=== PATIENT | male | born 1980 ===

== ENCOUNTER 2016-08-25 05:35 | Observation (INO) ==
[2016-08-25] MEDS ORDERED: fentaNYL 100 MCG/2 ML VIAL IV ONE (07:43)
[2016-08-25] MEDS ORDERED: DIAZEPAM 5 MG TABLET PO ONE (07:43)
[2016-08-25] MEDS ORDERED: MIDAZOLAM 2 MG/2 ML VIAL IV ONE (07:43)
[2016-08-25] MEDS ORDERED: SODIUM CHLORIDE 0.45% 1,000 ML IV SCH (08:00)
[2016-08-25 08:31] LABS: Basophils % 0.5 % (0.0-0.8); Eosinophils # 0.4 10*3/uL (0.0-0.87); Eosinophils % 4.7 % (0.00-10.9); Hematocrit 38.5 VOL% (42.0-52.0); Hemoglobin 12.3 GM/DL (14.0-18.0); Immature Granulocytes % 0.3 %; Immature Granulocytes Absolute 0.02 #; Lymphocytes # 2.1 10*3/uL (1.4-4.0); Lymphocytes % 28.5 % (21.2-54.2); Mean Corpuscular HGB Conc 31.9 GM/DL (32-36); Mean Corpuscular Hemoglobin 30 PG (27-34); Mean Corpuscular Volume 95.1 FL (87-102); Mean Platelet Volume 9.3 FL (9.6-12.0); Monocytes # 0.7 10*3/uL (0.11-0.8); Monocytes % 9.6 % (1.7-12.7); Neutrophils # 4.2 10*3/uL (1.4-7.4); Neutrophils % 56.4 % (38.7-73.9); Platelet Count 173 T/CUMM (130-400); Red Blood Count 4.05 MC/CUMM (3.8-5.5); Red Cell Distribution Width 15.7 % (9.3-17.3); White Blood Count 7.5 T/CUMM (4-12)
[2016-08-25 08:45] LABS: Partial Thromboplastin Time 29.6 SECS (0-40)
[2016-08-25 08:56] LABS: Calcium 9.2 MG/DL (8.5-10.1); Osmolality,Calculated 288.1 MOS/KG (273-304); Potassium 5.2 MMOL/L (3.5-5.1)
--- NOTE | 2016-08-25 09:13 | IR History and Physical Update ---
IR Pre-Procedure - History and Physical H&P was reviewed, the patient examined and there: are no changes in the patients condition since last H&P was completed. Reason for procedure:: 36-year-old male, end-stage renal disease on dialysis. Left upper arm AV fistula working very well. However, patient has nonhealing wound left index finger since March 2016, and is now paresthetic left hand. Here for evaluation of steal syndrome. - Dictation Physical: refer to scanned H&P - Physical Exam Vital Signs: Last Vital Signs Temp 97.2 F L 08/25/16 07:02 Pulse 76 08/25/16 07:02 Resp 20 08/25/16 07:02 BP 121/79 08/25/16 07:02 Pulse Ox 96 08/25/16 07:02 Mental Status: alert and oriented - Sedation IR anesthesia plan for sedation: minimal ASA Class: III - Risks Risks: Procedures explained. Risks discussed include, but not limited to, the following:[Bleeding, pain, vascular injury] All questions answered. The following alternatives were discussed:[Observation] Risks and benefits discussed with: patient Consent obtained from: patient Assessment and Plan - Time spent with patient Time spent with patient: Less than 30 minutes (1) ESRD (end stage renal disease) Status: Chronic Assessment and plan: Assessment: Left in hand steal syndrome secondary to left upper extremity AV fistula. Plan: Left upper extremity arteriogram with and without compression of AV fistula. Current Visit: Yes
[2016-08-25] MEDS ORDERED: DIAZEPAM 5 MG TABLET ONE (09:15)
[2016-08-25] MEDS ORDERED: HEPARIN/NACL 0.9% 2 UNITS/ML 2,000 ML IV ONE (11:45)
[2016-08-25] MEDS ORDERED: MIDAZOLAM 2 MG/2 ML VIAL ONE (12:46)
[2016-08-25] MEDS ORDERED: fentaNYL 100 MCG/2 ML VIAL ONE (12:46)
[2016-08-25] MEDS ORDERED: GLUCAGON 1 MG VIAL IM PRN (14:02)
[2016-08-25] MEDS ORDERED: DEXTROSE 50% 25 GM/50 ML VIAL IV PRN (14:02)
--- NOTE | 2016-08-25 14:05 | Post Interventional Procedure ---
Pre-op diagnosis: ESRD, LUE AVG, steal syndrome left hand w nonhealing wound index finger Post-op diagnosis: same Procedure: LUE angiogram Contrast: [id number], 140 cc Flouroscopy: 5.3 min Radiologist: Rick Ugarte Anesthesia: local, conscious sedation (Versed 1mg, fentanyl 25 mcg) Total Sedation Time: 45 min Specimens: none sent Estimated blood loss: none Complications: none Condition: stable Description/Findings: See radiology report. Patent LUE AVF above the elbow, with improved flow to hand w/ compression. Patent forearm AVF present too, needs ligation to reduce shunting from hand. Assessment and Plan - Time spent with patient Time spent with patient: Greater than 30 minutes (1) ESRD (end stage renal disease) Status: Chronic Assessment and plan: Assessment: Left in hand steal syndrome secondary to left upper extremity AV fistula. Plan: Left upper extremity arteriogram with and without compression of AV fistula. Current Visit: Yes
--- NOTE | 2016-08-25 14:44 | Interventional Radiology Rpt ---
IR angio extremity LT, IR angio aortic arch Indication: End-stage renal disease, on dialysis. Left upper arm AV fistula. Nonhealing wound left index finger with paresthesias of the left hand developing. Clinical steal syndrome left hand. LEFT UPPER EXTREMITY ANGIOGRAM Description: A formal timeout was performed. Maximum sterile barrier technique was instituted. Right common femoral artery was accessed with micropuncture technique. Using Seldinger technique, a flush catheter was situated in the ascending thoracic aorta. An angiogram was performed. Catheter was exchanged for a Mack catheter which was used to select the left axillary artery and an angiogram performed. Catheter was advanced in the left brachial artery and angiogram performed. Angiograms of the forearm and hand were performed without and with compression of the upper arm AV fistula. Initial set of angiogram shows a widely patent left upper arm AV fistula, which shunts a significant amount of arterial inflow from the left forearm. Without compression, there is very late and poor filling of the ulnar artery with only limited filling of the deep palmar branch and no proper digital artery opacification. With compression of the upper arm AV fistula, the ulnar artery and interosseous artery showed robust filling and there is filling of the deep and superficial palmar arches appears slightly attenuated, and filling of the proper digital arteries of all 5 fingers, also attenuated appearing. At no point does the radial artery fill. However, in the left forearm, a second fistula is identified beginning at the proximal radial artery remnant in the upper forearm, and filling numerous venous collaterals distally towards the wrist whereupon the venous fistula fills additional collaterals and then drains towards the elbow. This clearly contributes to significant shunting of inflow to the left hand and primary ligation of this is warranted. The angiogram does not show a suitable landing zone for coil embolization with the venous outflow tract measuring excess of 15 mm diameter. Access was removed. Hemostasis was achieved with manual compression. Patient tolerated the procedure well. Contrast: Visipaque 320, 140 cc. Fluoroscopy: 5.3 minutes. Conscious sedation: Under physician supervision, Versed 1 mg, fentanyl 25 mcg were administered intravenously for conscious sedation. Vital signs, including pulse oximetry, heart rate and blood pressure, continuously monitored by nursing present in the room. Physicians spent 45 minutes [id number] sedation time with the patient. Impression: 1. Steal syndrome to the left hand is present and significant, with markedly improved flow to the left hand when the left upper arm AV fistula is compressed/occluded. Flow to the left hand is limited to the ulnar artery and interosseous artery with no radial artery present. 2. Second left forearm fistula is identified off the radial artery remnant with numerous collaterals, clearly contributing to moderate amount of additional steal syndrome from the left hand. Recommend primary ligation of this fistula. No suitable landing zone for coil embolization identified. PROCEDURE INTERPRETED AT [facility] DEPARTMENT OF RADIOLOGY Final Report Signed by: Rick Ugarte M.D.
[2016-08-25] MEDS: INSULIN REGULAR 100 UNIT/ML SUBCUT SCH ×2 (15:57→22:07)
[2016-08-25] MEDS ORDERED: ACETAMINOPHEN 325 MG TABLET PO PRN (16:32)
[2016-08-25] MEDS ORDERED: ONDANSETRON 4 MG/2 ML VIAL IV PRN (16:32)
[2016-08-25] MEDS: CALCIUM CARBONATE CHEW 500 MG TABLET PO SCH (17:32)
[2016-08-25] MEDS: CARVEDILOL 12.5 MG TABLET PO SCH (22:21)
[2016-08-26 07:48] VITALS: BP 152/89
--- NOTE | 2016-08-26 08:06 | Event Note ---
He has no complaints this morning status post arteriogram. I did review the films with Dr. Ugarte. If it is okay with nephrology we will let him go home this morning and follow up in my office in the next week or so. At that time we can make plans and look at our options for operative intervention.
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
[2016-08-26] MEDS ORDERED: SIMVASTATIN 20 MG TABLET PO SCH (09:00)
[2016-08-26] MEDS ORDERED: FAMOTIDINE 20 MG TABLET PO SCH (09:00)
[2016-08-26] MEDS ORDERED: ASPIRIN EC 81 MG TABLET PO SCH (09:00)
[2016-08-26] MEDS ORDERED: PANTOPRAZOLE 40 MG TABLET PO SCH (09:00)
[2016-08-26] MEDS: CALCIUM CARBONATE CHEW 500 MG TABLET PO SCH (09:03)
--- NOTE | 2016-08-26 09:03 | Discharge Summary ---
Hospital Course - Hospital Course Hospital Course: The patient was admitted for observation s/p arteriogram. No complications overnight. Discharged in good condition via transportation services to [facility] for Dialysis per Dr. Ni instruction. F/u Dr. Thompson next week. Diagnosis - Discharge Diagnosis (1) Steal syndrome as complication of dialysis access Status: Acute Specialty Discharge - Follow Up or Referrals Follow up with: Romeo Thompson III., MD [Physician] - 09/01/16 9:15 am Discharge Plan - Discharge Data Disposition: Disch To Home/Self Care Condition at Discharge: Stable Discharge Diet: diabetic diet, other (Renal diet) Activity: resume usual activities as tolerated Hygiene: may shower (Do not soak or submerge wound for 1 wk. Pat dry.) Driving: no restrictions Contact your physician if you experience:: fever over 101, Difficulty voiding, Redness or swelling, Nausea/Vomiting, Shortness of breath, Bleeding, pain uncontrolled by pain medications Wound / Dressing Care Instructions: Keep incision clean and dry. Avoid excessive perspiration x 1 wk. - Discharge Medications Continue B-Complex with Vitamin C [Vitamin B-Complex with Vit C] 1 each PO DAILY Carvedilol [Coreg] 12.5 mg PO BID Aspirin [Ecotrin] 81 mg PO DAILY Simvastatin [Zocor] 20 mg PO DAILY Famotidine 20 mg PO DAILY Calcium Carbonate Chew [Tums] 2 tablet PO TID W/MEALS Cinacalcet HCl [Sensipar] 60 mg PO DAILY Insulin NPH Hum/Reg Insulin Hm [NovoLIN 70/30] See Protocol SUBCUT BEDTIME - Follow Up or Referral Follow Up: Romeo Thompson III., MD [Physician] - 09/01/16 9:15 am - Forms/Instructions Instructions: Angiogram (DC) Exam - Constitutional Vitals: Period Temp Pulse Resp BP Sys/Hinkle Pulse Ox Last 24 Hr 97.3 F-98.2 F 66-78 12-20 112-171/68-107 92-98 General appearance: no acute distress - Head Head exam: Present: normal inspection, normocephalic - Eye Eye exam: Absent: conjunctival injection, scleral icterus - Respiratory Respiratory exam: Present: clear to auscultation bilaterally - Cardiovascular Cardiovascular exam: Present: regular rate and rhythm - GI/Abdominal GI/Abdominal exam: Present: normal bowel sounds, soft. Absent: tenderness - Extremities Exam Extremities exam: Absent: calf tenderness, edema - Neurological Exam Neurological exam: Present: alert, oriented X3 - Psychiatric Psychiatric exam: Present: normal affect, normal mood - Skin Skin exam: Present: normal color, warm (Right groin incision site clean and dry. No evidence of infection or hematoma. Dusky left second finger.) Discharge Results Procedures and tests throughout hospitalization: LUE angiogram Labs on day of discharge: Labs from last 24 hours 08/26/16 08/25/16 08/25/16 07:02 20:37 15:27 POC Glucose 87 120 H 86 DS: Provider Date of admission: 08/25/2016 Primary care physician: Ronan Palencia MD Attending physician on admission: Bill Jay, III Consults: 08/25/16 16:49 Consult to Physician [CONS] Routine Comment: Pt missed dialysis today on MWF schedule. Consulting Provider: Rick Ni Person Notified: DR. NI Date Notified: 08/25/16 Time Notified: 16:55 Discharging clinician: Grace Smith PA-C
[2016-08-26] MEDS: CARVEDILOL 12.5 MG TABLET PO SCH (09:04)
[2016-08-26] MEDS: INSULIN REGULAR 100 UNIT/ML SUBCUT SCH (09:06)
== END 2016-08-26 11:00 | disposition home or self-care (01) ==
LOC: N.3E 05:35 → N.RAD 05:35 → N.SDSINP 06:33 → N.3E 14:48
PROVIDERS: ADMIT Surgery; ATTEND Surgery

== ENCOUNTER 2019-01-23 19:47 | Inpatient (IN) ==
[2019-01-23] MEDS ORDERED: ONDANSETRON 4 MG/2 ML VIAL IV PRN (22:43)
[2019-01-23] MEDS ORDERED: DEXTROSE 50% 25 GM/50 ML VIAL IV PRN ×2 (22:43→22:51)
[2019-01-23] MEDS ORDERED: GLUCAGON 1 MG VIAL IM PRN ×2 (22:43→22:51)
[2019-01-23] MEDS ORDERED: VANCOMYCIN INJ 1,000 MG in SODIUM CHLORIDE 0.9% 250 ML IV ONE (22:52)
[2019-01-23] MEDS ORDERED: HEPARIN 5,000 UNIT/1 ML VIAL SUBCUT SCH (23:00)
[2019-01-23 23:15] LABS: ABG Base Excess 7.7 MMOL/L (-2.5-2.5); ABG HCO3 31.5 MMOL/L (20-26); ABG Oxygen Saturation 99.9 % (95-100); ABG PCO2 47.4 MM HG (35-48); ABG PH 7.446 (7.35-7.45); ABG TCO2 30.3 MMOL/L (23-27); Allen Test Positive; Pt O2 Delivery Device BIPAP
[2019-01-23 23:24] LABS: Basophils % 0.3 % (0.0-0.8); Hematocrit 25.8 VOL% (42.0-52.0); Immature Granulocytes Absolute 0.09 #; Lymphocytes # 0.5 10*3/uL (1.4-4.0); Lymphocytes % 5.9 % (21.2-54.2); Mean Corpuscular Volume 94.2 FL (87-102); Mean Platelet Volume 10.6 FL (9.6-12.0); Monocytes % 8.2 % (1.7-12.7); Neutrophils % 84.6 % (38.7-73.9); Platelet Count 61 T/CUMM (130-400); Red Blood Count 2.74 MC/CUMM (3.8-5.5); Red Cell Distribution Width 15.5 % (9.3-17.3); White Blood Count 8.8 T/CUMM (4-12)
[2019-01-23] MEDS: ALBUTEROL/IPRATROPIUM 3 ML NEB RESP TX SCH (23:30)
[2019-01-23] MEDS: AZITHROMYCIN INJ 500 MG in SODIUM CHLORIDE 0.9% 250 ML IV SCH (23:39)
[2019-01-23 23:43] LABS: Albumin 2.3 G/DL (3.4-5.0); Bilirubin,Total 0.8 MG/DL (0.2-1.0); Calcium 8.1 MG/DL (8.5-10.1); Osmolality,Calculated 272.4 MOS/KG (273-304)
[2019-01-24] MEDS ORDERED: cefTRIAXone 2,000 MG in SYRINGE 1 EACH IV SCH
[2019-01-24] MEDS ORDERED: POTASSIUM CHLORIDE 20 MEQ TABLET PO ONE (00:57)
[2019-01-24] MEDS: PIPERACILLIN/TAZOBACTAM 3,375 MG in SODIUM CHLORIDE 0.9% 100 ML IV SCH ×2 (01:10→12:43)
[2019-01-24 01:37] LABS: Anisocytosis 1+; Eosinophils 2 % (0-10); Hypochromasia Slight; Lymphocytes 7 % (20-55); Microcytosis Slight; Platelet Estimate Decreased; Segmented Neutrophils 85 % (50-85); Total Cells Counted 100
[2019-01-24] MEDS: ALBUTEROL/IPRATROPIUM 3 ML NEB RESP TX SCH ×6 (02:30→23:35)
[2019-01-24 04:34] LABS: Basophils % 0.2 % (0.0-0.8); Hematocrit 26.1 VOL% (42.0-52.0); Hemoglobin 7.9 GM/DL (14.0-18.0); Immature Granulocytes % 1.2 %; Lymphocytes # 0.6 10*3/uL (1.4-4.0); Lymphocytes % 6.3 % (21.2-54.2); Mean Corpuscular HGB Conc 30.3 GM/DL (32-36); Mean Corpuscular Volume 96.3 FL (87-102); Neutrophils % 81.3 % (38.7-73.9); Platelet Count 56 T/CUMM (130-400); Red Blood Count 2.71 MC/CUMM (3.8-5.5); Red Cell Distribution Width 15.5 % (9.3-17.3); White Blood Count 8.7 T/CUMM (4-12)
[2019-01-24 04:57] LABS: Hypochromasia 1+; Microcytosis Slight; Platelet Estimate Decreased
[2019-01-24 05:14] LABS: Calcium 8.2 MG/DL (8.5-10.1)
[2019-01-24] MEDS: INSULIN REGULAR 100 UNIT/ML SUBCUT SCH ×4 (08:45→21:32)
[2019-01-24] MEDS: PANTOPRAZOLE 40 MG TABLET PO SCH (09:28)
[2019-01-24] MEDS: CALCIUM CARBONATE CHEW 500 MG TABLET PO SCH ×3 (09:28→16:37)
[2019-01-24] MEDS: CINACALCET 30 MG TABLET PO SCH (09:28)
[2019-01-24] MEDS: POTASSIUM CHLORIDE 20 MEQ TABLET PO SCH ×3 (09:29→16:37)
[2019-01-24] MEDS: carvediloL 12.5 MG TABLET PO SCH ×2 (09:29→20:17)
[2019-01-24] MEDS ORDERED: POTASSIUM CHLORIDE 20 MEQ TABLET PO SCH (10:00)
[2019-01-24] MEDS ORDERED: EPOETIN ALFA 10,000 UNIT/1 ML VIAL IV PRN (11:11)
[2019-01-24] MEDS: SIMVASTATIN 20 MG TABLET PO SCH (20:17)
[2019-01-24] MEDS: MORPHINE 4 MG/1 ML VIAL IV PRN (20:17)
[2019-01-24] MEDS: AZITHROMYCIN INJ 500 MG in SODIUM CHLORIDE 0.9% 250 ML IV SCH (23:58)
[2019-01-25] MEDS: PIPERACILLIN/TAZOBACTAM 3,375 MG in SODIUM CHLORIDE 0.9% 100 ML IV SCH (00:57)
[2019-01-25] MEDS: ALBUTEROL/IPRATROPIUM 3 ML NEB RESP TX SCH ×6 (02:47→22:38)
[2019-01-25] MEDS: INSULIN REGULAR 100 UNIT/ML SUBCUT SCH ×4 (07:38→20:19)
[2019-01-25] MEDS: CALCIUM CARBONATE CHEW 500 MG TABLET PO SCH ×3 (08:30→17:41)
[2019-01-25] MEDS: PANTOPRAZOLE 40 MG TABLET PO SCH (08:30)
[2019-01-25] MEDS: CINACALCET 30 MG TABLET PO SCH (08:31)
[2019-01-25] MEDS: carvediloL 12.5 MG TABLET PO SCH (09:16)
[2019-01-25 09:57] LABS: Calcium 8.3 MG/DL (8.5-10.1); Osmolality,Calculated 283.4 MOS/KG (273-304)
[2019-01-25] MEDS: LACTOBACILLUS ACIDOPHILUS/BULGARICUS CAPLET PO SCH ×2 (10:30→20:20)
[2019-01-25] MEDS: AZITHROMYCIN 250 MG TABLET PO SCH (10:30)
[2019-01-25] MEDS: cefTRIAXone 1,000 MG in SYRINGE 1 EACH IV SCH (10:35)
[2019-01-25] MEDS: SIMVASTATIN 20 MG TABLET PO SCH (20:20)
[2019-01-26] MEDS: MORPHINE 4 MG/1 ML VIAL IV PRN (00:06)
[2019-01-26] MEDS: ALBUTEROL/IPRATROPIUM 3 ML NEB RESP TX SCH ×6 (02:51→23:20)
[2019-01-26 04:22] LABS: Basophils % 0.5 % (0.0-0.8); Eosinophils # 0.1 10*3/uL (0.0-0.87); Eosinophils % 1.3 % (0.00-10.9); Hematocrit 25.8 VOL% (42.0-52.0); Hemoglobin 7.7 GM/DL (14.0-18.0); Immature Granulocytes % 1.3 %; Immature Granulocytes Absolute 0.08 #; Lymphocytes # 1.2 10*3/uL (1.4-4.0); Lymphocytes % 19.5 % (21.2-54.2); Mean Corpuscular HGB Conc 29.8 GM/DL (32-36); Mean Corpuscular Volume 96.6 FL (87-102); Mean Platelet Volume 12.4 FL (9.6-12.0); Monocytes % 10.4 % (1.7-12.7); Red Blood Count 2.67 MC/CUMM (3.8-5.5); Red Cell Distribution Width 15.5 % (9.3-17.3); White Blood Count 6.4 T/CUMM (4-12)
[2019-01-26 04:25] LABS: Platelet Count 63 T/CUMM (130-400)
[2019-01-26 04:32] LABS: Calcium 8.1 MG/DL (8.5-10.1); Osmolality,Calculated 280.1 MOS/KG (273-304)
[2019-01-26 04:44] LABS: Hypochromasia 1+; Platelet Estimate Decreased
[2019-01-26 04:45] LABS: Microcytosis Slight
[2019-01-26] MEDS: INSULIN REGULAR 100 UNIT/ML SUBCUT SCH ×4 (07:43→20:28)
[2019-01-26] MEDS: CALCIUM CARBONATE CHEW 500 MG TABLET PO SCH ×3 (08:18→16:44)
[2019-01-26] MEDS: PANTOPRAZOLE 40 MG TABLET PO SCH (08:18)
[2019-01-26] MEDS: AZITHROMYCIN 250 MG TABLET PO SCH (08:18)
[2019-01-26] MEDS: CINACALCET 30 MG TABLET PO SCH (08:18)
[2019-01-26] MEDS: LACTOBACILLUS ACIDOPHILUS/BULGARICUS CAPLET PO SCH ×2 (08:18→20:27)
[2019-01-26] MEDS: cefTRIAXone 1,000 MG in SYRINGE 1 EACH IV SCH (10:44)
[2019-01-26] MEDS: SIMVASTATIN 20 MG TABLET PO SCH (20:28)
[2019-01-27] MEDS: ALBUTEROL/IPRATROPIUM 3 ML NEB RESP TX SCH ×6 (03:40→19:26)
[2019-01-27 05:43] LABS: Basophils % 0.3 % (0.0-0.8); Eosinophils # 0.1 10*3/uL (0.0-0.87); Eosinophils % 0.8 % (0.00-10.9); Hematocrit 26.6 VOL% (42.0-52.0); Hemoglobin 7.9 GM/DL (14.0-18.0); Immature Granulocytes % 1.5 %; Immature Granulocytes Absolute 0.11 #; Lymphocytes # 1.1 10*3/uL (1.4-4.0); Lymphocytes % 15.3 % (21.2-54.2); Mean Corpuscular HGB Conc 29.7 GM/DL (32-36); Mean Corpuscular Volume 97.1 FL (87-102); Mean Platelet Volume 11.6 FL (9.6-12.0); Monocytes % 8.3 % (1.7-12.7); Neutrophils % 73.8 % (38.7-73.9); Platelet Count 77 T/CUMM (130-400); Red Blood Count 2.74 MC/CUMM (3.8-5.5); Red Cell Distribution Width 15.6 % (9.3-17.3); White Blood Count 7.2 T/CUMM (4-12)
[2019-01-27 06:06] LABS: Hypochromasia 1+; Platelet Estimate Decreased
[2019-01-27 06:09] LABS: Albumin 2.2 G/DL (3.4-5.0); Bilirubin,Total 1.1 MG/DL (0.2-1.0); Calcium 7.7 MG/DL (8.5-10.1); Osmolality,Calculated 282.4 MOS/KG (273-304); Total Protein 7.1 G/DL (6.4-8.3)
[2019-01-27] MEDS: CALCIUM CARBONATE CHEW 500 MG TABLET PO SCH ×3 (08:50→16:14)
[2019-01-27] MEDS: INSULIN REGULAR 100 UNIT/ML SUBCUT SCH ×4 (08:50→20:40)
[2019-01-27] MEDS: CINACALCET 30 MG TABLET PO SCH (08:50)
[2019-01-27] MEDS: PANTOPRAZOLE 40 MG TABLET PO SCH (08:50)
[2019-01-27] MEDS: LACTOBACILLUS ACIDOPHILUS/BULGARICUS CAPLET PO SCH ×2 (08:50→20:33)
[2019-01-27] MEDS: cefTRIAXone 1,000 MG in SYRINGE 1 EACH IV SCH (09:00)
[2019-01-27] MEDS ORDERED: cefTRIAXone 2,000 MG in SYRINGE 1 EACH IV SCH (12:00)
[2019-01-27] MEDS ORDERED: ceFAZolin 2,000 MG in PREMIX 1 EACH IV ONE (16:00)
[2019-01-27] MEDS: SIMVASTATIN 20 MG TABLET PO SCH (20:33)
[2019-01-28] MEDS: ALBUTEROL/IPRATROPIUM 3 ML NEB RESP TX SCH ×3 (01:32→07:23)
[2019-01-28 06:26] LABS: Basophils % 0.4 % (0.0-0.8); Eosinophils # 0.1 10*3/uL (0.0-0.87); Eosinophils % 1.6 % (0.00-10.9); Hematocrit 26.3 VOL% (42.0-52.0); Hemoglobin 7.9 GM/DL (14.0-18.0); Immature Granulocytes % 0.9 %; Immature Granulocytes Absolute 0.06 #; Lymphocytes # 1.1 10*3/uL (1.4-4.0); Lymphocytes % 15.2 % (21.2-54.2); Mean Corpuscular Volume 96.3 FL (87-102); Mean Platelet Volume 11.6 FL (9.6-12.0); Monocytes % 11.5 % (1.7-12.7); Neutrophils % 70.4 % (38.7-73.9); Platelet Count 112 T/CUMM (130-400); Red Blood Count 2.73 MC/CUMM (3.8-5.5); Red Cell Distribution Width 15.4 % (9.3-17.3); White Blood Count 6.9 T/CUMM (4-12)
[2019-01-28 06:55] LABS: Calcium 8.2 MG/DL (8.5-10.1)
[2019-01-28 08:29] VITALS: BP 116/52
[2019-01-28] MEDS: CINACALCET 30 MG TABLET PO SCH (09:31)
[2019-01-28] MEDS: INSULIN REGULAR 100 UNIT/ML SUBCUT SCH (09:31)
[2019-01-28] MEDS: CALCIUM CARBONATE CHEW 500 MG TABLET PO SCH (09:31)
[2019-01-28] MEDS: LACTOBACILLUS ACIDOPHILUS/BULGARICUS CAPLET PO SCH (09:32)
[2019-01-28] MEDS: PANTOPRAZOLE 40 MG TABLET PO SCH (09:32)
== END 2019-01-28 12:31 | disposition home or self-care (01) | DRG 871 ==
LOC: N.CC 21:25 → SUATTDRO 21:25 → N.5E 01-26 14:23
PROVIDERS: ADMIT Internal Medicine; ATTEND Internal Medicine